=== PATIENT | male | born 1955 ===

== ENCOUNTER 2016-11-01 08:35 | Day surgery (SDC) | payer OTHER ==
[2016-11-01] MEDS ORDERED: Iodixanol 320 MG/ML 100 ML BOTTLE IV ONE (11:13)
[2016-11-01] MEDS ORDERED: Iodixanol 320 MG/ML 200 ML BOTTLE IV ONE (11:13)
[2016-11-01] MEDS ORDERED: Midazolam 2 MG/2 ML VIAL ONE (11:22)
--- NOTE | 2016-11-01 13:12 | CP.PCM.PN ---
Subjective - Date & Time of Evaluation Date of Evaluation: 11/01/16 Time of Evaluation: 10:00 - Subjective Subjective: please see enclosed H and P. no change.
[2016-11-01 13:15] VITALS: BMI 25.2
[2016-11-02 10:24] VITALS: RESP 23; O2SAT 100
--- NOTE | 2016-11-03 05:41 | OP ---
PROCEDURE DATE: 11/01/2016 INDICATION: Gangrenous fissure of the right foot. PROCEDURE PERFORMED: Abdominal aortography with bilateral iliofemoral runoff, selective catheter placement into right common femoral artery, bilateral lower extremity angiography. COMPLICATIONS: None. OPERATING SURGEON: Mervin Sanz MD HISTORY: The patient is a 61-year-old male with a past medical history of hypertension, hypercholesterolemia, diabetes mellitus. He has developed dry gangrene of the fifth digit of the right foot. The patient is referred for peripheral angiography. DESCRIPTION OF THE PROCEDURE: After obtaining informed consent, the patient was prepped and draped in usual sterile fashion. The left groin was anesthetized with 2% lidocaine solution. Abdominal aortography with bilateral iliofemoral runoff was performed. Bilateral extremity angiography was performed. Selective catheterization was performed after redirecting with stiff-angled Glidewire to the right common femoral artery via contralateral approach. Angiography was then performed. Hemostasis was applied manually. FINDINGS: There is infrarenal abdominal aorta with mild atherosclerosis. There is no aneurysmal dissection. The renal arteries have no significant arthrosclerosis. Bilateral common iliac arteries have mild disease. The profunda femoris arteries exhibit mild diffuse disease. In the left leg, there is a proximal 90% stenosis of the left superficial femoral artery, the mid left superficial femoral artery has 80% stenosis. There is a 95% stenosis of the proximal popliteal artery in the left. The left tibioperoneal trunk is occluded 100% with reconstitution. There is diffuse tibial disease in the left. The right superficial femoral artery has a 95% stenosis proximally. There is 90% to 95% sequential stenosis in the mid with a 100% occlusion of the proximal right popliteal artery. Small geniculate collaterals have formed. There is no significant tibial flow to the right foot. The foot has *------* collateral circulation. CONCLUSION: Severe superficial femoral artery disease bilaterally. Significant outflow disease bilaterally. Plan is the patient will require medical therapy. There is no endovascular management possible. Mervin Sanz MD
== END 2016-11-01 14:15 | disposition short-term general hospital (02) ==
LOC: C.CATHLAB 08:35
PROVIDERS: ATTEND Internal Medicine Cardiovascular Disease
DX: I70.263 Atherosclerosis of native arteries of extremities with gangrene, bilateral legs (principal); E11.52 Type 2 diabetes mellitus with diabetic peripheral angiopathy with gangrene
CPT/HCPCS: 36200; 75625; 75716; 82948; 94770; C1766; C1769; J0360; J1644; J2250; J3010; Q9966; Q9967